=== PATIENT | male | born 1940 | race Caucasian/White ===

== ENCOUNTER 2017-08-03 14:43 | Outpatient (CLI) | payer OTHER ==
--- NOTE | 2017-08-04 10:14 | XRAY Report ---
DATE OF SERVICE: 08/03/2017 TWO VIEW CHEST: 08/03/2017 CLINICAL INDICATION: Chronic kidney disease. COMPARISON: 10/05/2014. FINDINGS: Frontal and lateral views of the chest demonstrate a normal cardiac silhouette. The lungs are clear. No effusion or pneumothorax is present. IMPRESSION: NORMAL CHEST. TD: 08/04/2017 11:13
== END 2017-08-03 14:44 | disposition home or self-care (01) ==
LOC: DI 14:43
PROVIDERS: ATTEND Internal Medicine Nephrology
DX: N18.4 Chronic kidney disease, stage 4 (severe) (principal)
CPT/HCPCS: 71046

== ENCOUNTER 2017-09-10 19:30 | Outpatient (CLI) | payer OTHER | END 2017-09-10 19:31 | disposition EMS.NT | LOC: EMS 19:30 | PROVIDERS: ATTEND Surgery | DX: Z04.1 Encounter for examination and observation following transport accident (principal); V49.9XXA Car occupant (driver) (passenger) injured in unspecified traffic accident, initial encounter; Y92.413 State road as the place of occurrence of the external cause ==

== ENCOUNTER 2018-02-02 14:02 | Outpatient (CLI) | payer OTHER ==
--- NOTE | 2018-02-02 15:27 | XRAY Report ---
Procedure Date: 02/02/2018 Accession Number: [id number] Procedure: XR - Chest 2 View X-Ray CPT Code: 86825 FULL RESULT: EXAM: Chest 2 View X-Ray DATE: 02/02/2018 2:20 PM CLINICAL HISTORY: ESRD, HTN CKD ALEXANDRA W/CKD STAGE, ANEMIA CKD COMPARISON: None. TECHNIQUE: 2 views. FINDINGS: Lungs/Pleura: No focal opacities evident. No pneumothorax or pleural effusion. Normal volumes. Mediastinum: Heart and mediastinal contours are unremarkable. Other: None. IMPRESSION: Normal 2-view chest radiography. No evidence of active tuberculosis. [facility]
== END 2018-02-02 14:03 | disposition home or self-care (01) ==
LOC: DI 14:02
PROVIDERS: ATTEND Internal Medicine Nephrology
DX: I12.0 Hypertensive chronic kidney disease with stage 5 chronic kidney disease or end stage renal disease (principal); D63.1 Anemia in chronic kidney disease; N18.6 End stage renal disease
CPT/HCPCS: 71046